=== PATIENT | male | born 1980 | race Caucasian/White ===

== ENCOUNTER 2023-03-20 21:47 | Emergency (ER) | payer OTHER ==
[2023-03-20] MEDS ORDERED: CEFAZOLIN 1 GM VIAL ONE (22:00)
[2023-03-20] MEDS ORDERED: Ondansetron PF 4 MG/2 ML Vial ONE ×2 (22:00→22:34)
[2023-03-20] MEDS ORDERED: Sodium Chloride 0.9% 100 ML ONE (22:00)
[2023-03-20] MEDS ORDERED: Morphine 4 MG/ML VIAL ONE ×2 (22:00→22:09)
[2023-03-20 22:05] LABS: #Eosinphils 0.2 thou/uL (0.0-0.7); #Monocytes 0.8 thou/uL (0.11-0.59); #Neutrophils 5.7 thou/uL (1.40-6.50); %Basophils 0.4 % (0.0-1.0); %Eosinophils 1.9 % (0.0-10.0); %Lymphocytes 30.9 % (21.0-51.0); %Monocytes 8.7 % (0.0-10.0); %Neutrophils 58.2 % (42.0-75.0); Hemoglobin 15.6 g/dL (14.0-18.0); Mean Corpuscular HGB CONC 32.6 g/dL (32.0-36.0); Mean Corpuscular Hemoglobin 28.8 pg (27.0-31.0); Mean Corpuscular Volume 88.2 fl (78.0-98.0); Mean Platelet Volume 6.6 fL (7.4-10.4); Platelet Count 265 10x3/uL (130-400); RBC Distribution Width 12.6 % (11.5-14.5); Red Blood Cell (RBC) Count 5.43 mill/uL (4.70-6.10); White Blood Cell (WBC) Count 9.8 10x3/uL (4.8-10.8)
[2023-03-20] MEDS ORDERED: Boostrix 0.5 ML (Tdap) VIAL (>/=7 yrs of age) ONE (22:09)
[2023-03-20] MEDS ORDERED: fentaNYL 50 mcg/mL 1 mL Vial ONE ×2 (22:18→22:29)
[2023-03-20 22:21] LABS: ALT (SGPT) 25 U/L (8-55); AST (SGOT) 20 U/L (5-34); Albumin 4.6 g/dL (3.5-5.0); Alkaline Phosphatase 93 U/L (40-110); Anion Gap 16 mmol/L (10-20); BUN (Urea Nitrogen) 13 mg/dL (8.9-20.6); Bilirubin, Total 0.4 mg/dL (0.2-1.2); Calc. Creatinine Clearance 0 mL/min (70-130); Calcium 9.2 mg/dL (7.8-10.44); Carbon Dioxide 22 mmol/L (22-29); Chloride 107 mmol/L (98-107); Estimated GFR 83; Globulin 3.7 g/dL (2.4-3.5); Glucose 96 mg/dL (70-105); Potassium 3.5 mmol/L (3.5-5.1); Protein, Total 8.3 g/dL (6.0-8.3); Sodium 141 mmol/L (136-145)
== END 2023-03-20 22:45 | disposition short-term general hospital (02) ==
LOC: NAV ERS 21:47
DX: T23.301A Burn of third degree of right hand, unspecified site, initial encounter (principal); T23.302A Burn of third degree of left hand, unspecified site, initial encounter; J45.909 Unspecified asthma, uncomplicated; K21.9 Gastro-esophageal reflux disease without esophagitis; I10 Essential (primary) hypertension; F17.210 Nicotine dependence, cigarettes, uncomplicated; X19.XXXA Contact with other heat and hot substances, initial encounter
CPT/HCPCS: 80053; 85025; 90471; 90715; 94760; 96365; 96375; 96376; J0690; J2270; J2405; J3010; J3490

== ENCOUNTER 2023-11-08 07:23 | Emergency (ER) | payer SELFPAY ==
[2023-11-08 08:29] LABS: Influenza A by NAA Not Detected (NotDetected); Influenza B by NAA Not Detected (NotDetected); SARS-CoV-2 NAA Rapid Test Not Detected (NotDetected)
== END 2023-11-08 09:09 | disposition home or self-care (01) ==
LOC: NAV ERS 07:23
DX: B34.9 Viral infection, unspecified (principal); K21.9 Gastro-esophageal reflux disease without esophagitis; I10 Essential (primary) hypertension; F17.290 Nicotine dependence, other tobacco product, uncomplicated; Z79.899 Other long term (current) drug therapy
CPT/HCPCS: 99283

== ENCOUNTER 2024-01-29 07:41 | Emergency (ER) | payer SELFPAY | END 2024-01-29 08:50 | disposition home or self-care (01) | LOC: NAV ERS 07:41 | DX: L05.01 Pilonidal cyst with abscess (principal); I10 Essential (primary) hypertension; F17.290 Nicotine dependence, other tobacco product, uncomplicated; Z79.899 Other long term (current) drug therapy | CPT/HCPCS: 99282 ==